=== PATIENT | female | born 1955 | race Caucasian/White ===

== ENCOUNTER → 2017-10-02 | Outpatient (CLI) | payer OTHER | END | disposition home or self-care (01) | LOC: CFH 14:52 | PROVIDERS: ATTEND Orthopaedic Surgery | DX: G95.0 Syringomyelia and syringobulbia (principal) | CPT/HCPCS: 82565 ==

== ENCOUNTER → 2017-10-18 | Outpatient (CLI) | payer OTHER ==
[~2017-10-18] MED LIST: GADOBUTROL 7.5 MMOL/7.5 ML PFS ONE
== END | disposition home or self-care (01) ==
LOC: RAD 11:55
PROVIDERS: ATTEND Orthopaedic Surgery
DX: G95.0 Syringomyelia and syringobulbia (principal); R60.9 Edema, unspecified
CPT/HCPCS: 70553; 72156; A9585

== ENCOUNTER → 2018-04-04 | Outpatient (CLI) | payer OTHER | END | disposition home or self-care (01) | LOC: CFH 14:31 | PROVIDERS: ATTEND Neurological Surgery | DX: G95.0 Syringomyelia and syringobulbia (principal); D32.0 Benign neoplasm of cerebral meninges | CPT/HCPCS: 70553; 72141; A9585 ==

== ENCOUNTER 2019-03-25 13:53 | Outpatient (CLI) | payer OTHER ==
[2019-03-25] MEDS ORDERED: GADOBUTROL 7.5 MMOL/7.5 ML PFS ONE (14:41)
== END 2019-03-25 23:59 | disposition home or self-care (01) ==
LOC: CFH 13:53
PROVIDERS: ATTEND Neurological Surgery
DX: D32.0 Benign neoplasm of cerebral meninges (principal)
CPT/HCPCS: 70553; A9585

== ENCOUNTER → 2020-07-14 | Outpatient (CLI) | payer BC, OTHER | END | disposition home or self-care (01) | LOC: RAD 10:36 | PROVIDERS: ATTEND Orthopaedic Surgery | DX: M17.12 Unilateral primary osteoarthritis, left knee (principal) ==

== ENCOUNTER 2020-08-31 06:55 | Day surgery (SDC) | payer OTHER ==
[2020-08-28 11:41] LABS: BASOPHILS % (AUTO) 0 % (0-1); EOSINOPHILS % (AUTO) 1 % (1-7); LYMPHOCYTES % (AUTO) 22 % (22-44); MEAN CORPUSCULAR HEMOGLOBIN 30.1 pg (27.0-34.8); MEAN CORPUSCULAR HGB CONC 33.8 g/dL (32.4-35.8); MEAN PLATELET VOLUME 7.5 fL (7.4-10.4); MONOCYTES % (AUTO) 8 % (2-9); NEUTROPHILS % (AUTO) 69 % (42-75); PLATELET COUNT 274 x10^3/uL (130-400); RED BLOOD COUNT 4.44 x10^6/uL (3.82-5.3)
[2020-08-28 11:44] LABS: MD NO
[2020-08-28 11:51] LABS: CHLORIDE 106 mmol/L (98-107)
[2020-08-28 11:55] LABS: ANION GAP 4 mmol/L (5-15); CALCIUM 9.3 mg/dL (8.5-10.1)
[2020-08-28 13:46] LABS: INTERNATIONAL NORMALIZED RATIO 1.01 (0.93-1.1); PROTHROMBIN TIME 10.7 Seconds (9.6-11.5)
[~2020-08-31] VITALS: Ht 162.6 cm; Wt 56.0 kg
[~2020-08-31 06:55] MED LIST changes: +BUPR450T PO; +FENTANYL PF 250 MCG/5ML ONE; -GADOBUTROL 7.5 MMOL/7.5 ML PFS ONE; +MELO15TA24 PO; +MIDAZOLAM 1 MG/ML, 2ML ONE; +PANT20TA4 PO
[2020-08-31] MEDS ORDERED: KETOROLAC 60 MG/2 ML ONE (07:03)
[2020-08-31] MEDS ORDERED: ROPIvacaine/PF 0.2%, 20 ML ONE (07:03)
[2020-08-31] MEDS ORDERED: TRANEXAMIC ACID 100 MG/ML, 10ML ONE (07:03)
[2020-08-31] MEDS ORDERED: VANCOMYCIN 1,000 MG ONE (07:03)
[2020-08-31] MEDS ORDERED: SODIUM CHLORIDE 0.9% 50 ML ONE (07:04)
[2020-08-31] MEDS ORDERED: EPINEPHRINE 1 MG/ML, 1ML ONE (07:04)
[2020-08-31] MEDS ORDERED: ACETAMINOPHEN 500 MG TABLET PO STA (07:36)
[2020-08-31 07:38] VITALS: BP 129/84
[2020-08-31] MEDS ORDERED: GABAPENTIN 300 MG CAPSULE PO ONE (08:00)
[2020-08-31] MEDS ORDERED: LACTATED RINGERS 1,000 ML IV SCH (08:00)
[2020-08-31] MEDS ORDERED: CHLORHEXIDINE 15 ML UDC MM ONE (08:00)
[2020-08-31] MEDS ORDERED: ONDANSETRON 2MG/ML, 2ML ONE (09:16)
[2020-08-31] MEDS ORDERED: PROPOFOL 10 MG/ML, 20ML ONE (09:16)
[2020-08-31] MEDS ORDERED: CEFAZOLIN 1,000 MG ONE (09:16)
[2020-08-31] MEDS ORDERED: NEOSTIGMINE 1 MG/ML, 10ML ONE (09:16)
[2020-08-31] MEDS ORDERED: GLYCOPYRROLATE 0.2MG/1ML, 5ML ONE (09:16)
[2020-08-31] MEDS ORDERED: ROCURONIUM 10MG/ML,5ML ONE (09:16)
[2020-08-31] MEDS ORDERED: HYDROmorphone 1 MG/ML, 1ML INJ IVPush PRN ×2 (09:30→10:30)
[2020-08-31] MEDS ORDERED: HYDROcodone/APAP 7.5-325MG/15ML UDC PO PRN (09:30)
[2020-08-31] MEDS ORDERED: morphine SULFATE 10 MG/ML, 1ML IVPush PRN (09:30)
[2020-08-31] MEDS ORDERED: HALOPERIDOL 5 MG/ML IV PRN (09:30)
[2020-08-31] MEDS ORDERED: MEPERIDINE/PF 25MG/0.5ML IVPush PRN (09:30)
[2020-08-31] MEDS ORDERED: ACETAMINOPHEN 325 MG TABLET PO PRN (09:30)
[2020-08-31] MEDS ORDERED: PROMETHAZINE 25 MG/ML, 1ML IVPush PRN (09:30)
[2020-08-31] MEDS ORDERED: LABETALOL 5MG/ML, 20ML IV PRN (09:30)
[2020-08-31] MEDS ORDERED: OXYcodone 5 MG/5 ML ORAL.SOL UDC PO PRN (09:30)
[2020-08-31] MEDS ORDERED: hydrALAzine 20 MG/ML, 1ML IV PRN (09:30)
[2020-08-31] MEDS ORDERED: HYDROmorphone 1 MG/ML, 1ML INJ ONE (10:19)
[2020-08-31] MEDS ORDERED: FENTANYL PF 100 MCG/2ML ONE (10:19)
[2020-08-31] MEDS: FENTANYL PF 100 MCG/2ML IV PRN ×2 (10:21→10:43)
[2020-08-31] MEDS ORDERED: OXYcodone IR 5MG TABLET PO PRN (10:30)
[2020-08-31] MEDS ORDERED: DEXAMETHASONE 4 MG/ML, 1ML IVPush SCH (10:30)
[2020-08-31] MEDS ORDERED: ACETAMINOPHEN 650 MG/20.3 ML UDC PO PRN (10:30)
[2020-08-31] MEDS ORDERED: DIPHENHYDRAMINE 50 MG/ML, 1ML IVPush PRN (10:30)
[2020-08-31] MEDS ORDERED: KETOROLAC 30 MG/1 ML IV SCH (10:30)
[2020-08-31] MEDS ORDERED: PSYLLIUM PACKET PO PRN (10:30)
[2020-08-31] MEDS ORDERED: POTASSIUM CHLORIDE 20 MEQ in D5%-0.45% NACL 1,000 ML IV SCH (10:30)
[2020-08-31] MEDS ORDERED: DIPHENHYDRAMINE 50 MG CAPSULE PO PRN (10:30)
[2020-08-31] MEDS ORDERED: ALUMINUM/MAG/SIMETHICONE 30 ML UDC PO PRN (10:30)
[2020-08-31] MEDS ORDERED: CEFAZOLIN PMX 1GM/50ML 50 ML IVPB SCH (10:30)
[2020-08-31] MEDS ORDERED: ONDANSETRON 2MG/ML, 2ML IVPush PRN (10:30)
[2020-08-31] MEDS ORDERED: POLYETHYLENE GLYCOL 17 GM PACKET PO PRN (10:30)
[2020-08-31] MEDS ORDERED: MAGNESIUM HYDROXIDE 8%, 30ML UDC PO PRN (10:30)
[2020-08-31] MEDS ORDERED: METOCLOPRAMIDE 5 MG/ML, 2ML IVPush PRN (10:30)
[2020-08-31] MEDS ORDERED: SENNA/DOCUSATE TABLET PO PRN (10:30)
[2020-08-31] MEDS ORDERED: ONDANSETRON 4 MG TABLET PO PRN (10:30)
[2020-08-31] MEDS ORDERED: TRANEXAMIC ACID 1,000 MG in SODIUM CHLORIDE 0.9% 100 ML IVPB ONE (11:00)
[2020-08-31] MEDS ORDERED: DOCUSATE 100 MG CAPSULE PO SCH (21:00)
[2020-08-31] MEDS ORDERED: ASPIRIN 81 MG TABLET EC PO SCH (21:00)
[2020-09-01] MEDS ORDERED: TAMSULOSIN 0.4 MG CAP.ER.24H PO SCH (09:00)
== END 2020-08-31 17:55 | disposition home or self-care (01) ==
LOC: OUT 06:55
PROVIDERS: ATTEND Orthopaedic Surgery
DX: M17.12 Unilateral primary osteoarthritis, left knee (principal); M25.762 Osteophyte, left knee; M71.22 Synovial cyst of popliteal space [Baker], left knee; K21.9 Gastro-esophageal reflux disease without esophagitis; Z20.828 Contact with and (suspected) exposure to other viral communicable diseases; Z79.899 Other long term (current) drug therapy; Z72.89 Other problems related to lifestyle; Z82.3 Family history of stroke; Z82.49 Family history of ischemic heart disease and other diseases of the circulatory system
CPT/HCPCS: 27447; 36415; 64447; 73560; 80048; 83036; 85025; 85610; 85730; 87081; 87806; 93005; 97161; C1713; C1776; J0171; J0690; J1170; J1630; J1885; J2250; J2405; J2550; J2704; J2710; J2795; J3010; J7120; U0003; J3370; G0475